=== PATIENT | female | born 1985 | race Caucasian/White ===

== ENCOUNTER 2020-04-29 16:49 | Observation (INO) | payer OTHER, SELFPAY ==
--- NOTE | ~2020-04-29 | US_ITS ---
EXAMINATION: US pelvic complete w TV DATE: 04/30/2020 09:47 INDICATION: Pelvic pain. TECHNIQUE: Multiple transabdominal and transvaginal sonographic images of the pelvis were obtained. COMPARISON: CT abdomen and pelvis 04/29/2020 FINDINGS: TRANSABDOMINAL ULTRASOUND: The uterus measures 8.5 x 5.4 x 4.5 cm. There is no free fluid in the pelvis. TRANSVAGINAL ULTRASOUND: The endometrial complex measures 7 mm in thickness. There is a nabothian cyst in the cervix. The righ t ovary measures 2.3 x 2.6 x 2.1 cm. The left ovary measures 1.9 x 1.7 x 2.5 cm. There is normal vasc ular flow in the ovaries. IMPRESSION: 1. No etiology for the patient's symptoms. Reviewed, dictated and finalized at location A. [employer] IN[employer]
--- NOTE | ~2020-04-29 | CT_ITS ---
EXAMINATION: CT abdomen pelvis w con DATE: 04/29/2020 18:25 INDICATION: Low abdominal pain. Bloating. TECHNIQUE: Computed tomography (CT) of the abdomen and pelvis was performed with 100 mL Omnipaque 350 intravenous contrast. Automated exposure control and iterative reconstruction technique were employe d. The dose-length product was 178.87 mGy-cm. COMPARISON: None. FINDINGS: The visualized portions of the lung bases demonstrate mild atelectasis. No pleural effusion . The heart size is normal. No pericardial effusion. There are bilateral breast implants. The liver, gallbladder, spleen, pancreas, adrenal glands, and kidneys are normal. There are no dilated loops of bowel. The visualized portion of the appendix is normal. There are no pathologically enlarged lymph n odes. There is no free intraperitoneal fluid. The bones are unremarkable. IMPRESSION: 1. No etiology for the patient's symptoms. Reviewed, dictated and finalized at location A. NTIFIC DIRECTOR
[2020-04-29 16:53] VITALS: BP 142/100; PULSE 106; RESP 16; TEMP 35.9; O2SAT 100
[2020-04-29 17:15] VITALS: BP 137/103; PULSE 95; RESP 18; O2SAT 99
[2020-04-29 17:22] LABS: Basophils Absolute Auto 0.1 K/mm3 (0.0-0.1); Hematocrit 39.5 % (37.0-47.0); Hemoglobin 13.6 g/dL (12.0-15.0); Immature Granulocyte Absolute 0.03 K/mm3 (0.00-0.031); Immature Granulocyte Percent A 0.4 % (0-0.5); Lymphocytes Absolute Auto 1.96 K/mm3 (0.9-3.2); Lymphocytes Percent Auto 29.1 % (18.3-44.2); Mean Corpuscular HGB Conc 34.4 g/dl (32-36); Mean Corpuscular Hemoglobin 31.6 pg (26-34); Mean Corpuscular Volume 91.9 fl (80-100); Mean Platelet Volume 10.5 fl (7.4-10.4); Monocytes Absolute Auto 0.6 K/mm3 (0.1-0.6); Monocytes Percent Auto 8.5 % (2.6-8.5); Neutrophils Absolute Auto 4.1 K/mm3 (1.3-6.7); Platelet Count Result 241 k/mm3 (150-375); Red Cell Distribution Width 11.3 % (11.5-14.5); White Blood Count 6.7 K/mm3 (4.5-10.0)
--- NOTE | 2020-04-29 17:23 | ED.ABDPAIN ---
HPI - Abdominal Pain General Chief Complaint: Abdominal Pain Stated Complaint: possible tubal ?/ Time Seen by Provider: 04/29/20 17:15 Source: patient Mode of arrival: ambulatory Limitations: no limitations History of Present Illness HPI narrative: Patient is a 34-year-old female complaining of right mid to lower quadrant pain rating to her right flank back, 6 out of 10, sharp started approximately 3 days ago worse today.. Related Data Home Medications Medication Instructions Recorded Confirmed lamotrigine DAILY 04/29/20 venlafaxine mg PO DAILY 04/29/20 Allergies Allergy/AdvReac Type Severity Reaction Status Date / Time codeine AdvReac Mild Nausea and Verified 04/29/20 16:57 Vomiting Review of Systems Review of Systems: All systems reviewed & are unremarkable except as noted in HPI and below Constitutional: Constitutional: Denies body ache(s), Denies chills, Denies excessive sweating, Denies fatigue, Denies fever(s), Denies headache(s), Denies lethargy, Denies malaise, Denies weakness and Denies weight loss Eyes: Eyes: Denies blurry vision, Denies change in vision and Denies loss of vision ENT: Denies dizziness, Denies ear discharge, Denies headache(s), Denies lip swelling, Denies epistaxis, Denies nasal congestion, Denies neck pain, Denies throat swelling and Denies tongue swelling Cardiovascular: Cardiovascular: Denies chest pain, Denies chest pain at rest, Denies chest pain with activity, Denies diaphoresis, Denies rapid heart rate, Denies edema, Denies irregular heart rhythm, Denies lightheadedness, Denies palpitations, Denies dyspnea and Denies dyspnea on exertion Respiratory: Respiratory: Denies chest congestion, Denies cough, Denies hemoptysis, Denies dyspnea and Denies dyspnea on exertion Gastrointestinal: Gastrointestinal: Denies melena, Denies hematochezia, Denies diarrhea, Denies nausea, Denies vomiting and Denies hematemesis Musculoskeletal: Musculoskeletal: Denies abnormal gait, Denies deformity, Denies joint swelling, Denies limited range of motion, Denies neck pain and Denies numbness Neurologic: Denies Abnormal speech present, Denies abnormal gait, Denies confusion, Denies dizziness, Denies headache(s), Denies focal weakness, Denies loss of vision, Denies numbness, Denies Other visual disturbances, Denies Sensory deficit (Neuro) and Denies weakness Psychiatric: Psychiatric: Denies confusion, Denies depression, Denies auditory hallucinations, Denies homicidal ideation and Denies suicidal ideation Endocrine: Endocrine: Denies cold intolerance, Denies excessive sweating, Denies fatigue, Denies heat intolerance and Denies palpitations Hematologic/Lymphatic: Hematologic/Lymphatic: Denies easy bleeding and Denies easy bruising Allergic/Immunologic: Allergic/Immunologic: Denies lip swelling, Denies throat swelling and Denies tongue swelling PMFSH Social History Social History Gender identity (if verbalized by the patient): Female Exam Const: General: cooperative, healthy appearing, comfortable, no acute distress, well developed, alert and awake; No confusion Orientation/consciousness: oriented to person, oriented to place, oriented to time, patient oriented x3 and No confusion Limitations: no limitations HENMT: Head: normal to inspection, normocephalic and atraumatic Ears: hearing grossly normal bilaterally, TM normal on the right and TM normal on the left General nose exam: Normal external nose present, Normal nares present and No nasal discharge present Face and sinus: normal facial exam Mouth: Yes Normal oral and palatal mucosa present, Yes lip normal, Yes tongue normal and Yes oropharynx normal Throat: posterior oropharynx normal, tonsils normal and uvula midline Eyes: General: appearance normal, both eyes and all related structures Pupils: Equal, round and reactive pupils present EOM: EOMs intact bilaterally Neck: Neck: normal visual inspection, full ROM, no lymphadenopathy and
[2020-04-29 17:26] LABS: Add Urine Microscopic? YES; Appearance Urine Clear (Clear); Bacteria Urine 1+ /hpf; Bilirubin Urine Negative (Negative); Blood Urine Negative (Negative); Color Urine Straw (Yellow); Glucose Urine UA Negative (Negative); Ketones Urine 1+ mg/dL (Negative); Leukocyte Esterase Ur Trace LEU/UL (Negative); Mucus Urine Rare /lpf; Nitrate Urine Negative (Negative); Protein Urine Negative (Negative); RBC Urine 0-2 /hpf (0-2); Specific Grav Ur 1.012 (1.001-1.035); Squamous Epithelial Cell Urine Many /hpf (Few); Urobilinogen Urine Negative mg/dL (<2.0); WBC Urine 0-3 /hpf
[2020-04-29 17:31] LABS: Alanine Aminotransferase 22 U/L (4-35); Albumin Level 4.6 g/dL (3.5-5.1); Alkaline Phosphatase 63 U/L (38-126); Anion Gap 8 mmol/L (8-16); Aspartate Amino Transferase 29 U/L (14-36); Bilirubin,Total 0.4 mg/dL (0.2-1.3); Blood Urea Nitrogen 8 mg/dL (7-17); Calcium 9.1 mg/dL (8.4-10.2); Carbon Dioxide 31 mmol/L (22-30); Chloride 98 mmol/L (98-107); Estimated CRCL calculation 93 ml/min; Estimated Glomerular Filt Rate > 60; Glucose 112 mg/dL (65-105); Lipase 1658 U/L (23-300); Potassium 3.1 mmol/L (3.4-5.0); Sodium 137 mmol/L (137-145)
[2020-04-29] MEDS: SODIUM CHLORIDE 0.9% IV 1,000 ML 999 ML IV CONT (17:49)
[2020-04-29 19:10] VITALS: BP 128/97; PULSE 76; RESP 16; O2SAT 100
[2020-04-29] MEDS: KETOROLAC 30 MG/ML VIAL (*BKC) IV PUSH (19:49)
[2020-04-29] MEDS: KCL 20 MEQ/D5/0.45% SOD CHL 1,000 ML 125 ML IV CONT (19:49)
[2020-04-29] MEDS: HYDROmorphone HCL INJ (*CRX) 1 MG/ML SYR 0.5 MG IV PUSH (20:40)
[2020-04-29] MEDS: ONDANSETRON INJ 4 MG/2 ML VIAL IV PUSH (20:40)
[2020-04-29 20:43] VITALS: BP 132/84; PULSE 80; RESP 16; TEMP 36.2; O2SAT 98
--- NOTE | 2020-04-29 21:11 | PC.NURSE ---
This patient, Michelle Castro, was admitted to [facility]. Patient/family oriented to hospital policies and general routines including ID bracelet, bed and alarms, visiting hours, pain management, procedures, bathroom and other care routines, personal items, smoking policy, room service/diet, and visiting hours. Information on how to activate the Rapid Response Team has been discussed. Patient/Family are encouraged to report perceived risks to care and to ask questions if they do not understand what they are told or what they should do.
[2020-04-29 21:18] VITALS: BMI 20.6
[2020-04-29 21:45] VITALS: BP 144/106; PULSE 66; RESP 18; TEMP 36.6; O2SAT 99
[2020-04-29 23:47] VITALS: BP 134/99
[2020-04-30] MEDS: LORazepam INJ (*CRX) 2 MG/ML VIAL 0.5 MG IV PUSH (00:12)
--- NOTE | 2020-04-30 01:37 | PM.IMHP ---
H&P: HPI History of Present Illness Date/Time: 04/30/20 00:15 Chief Complaint: Right lower abdominal pain and back pain for 3 days. Narrative: Michelle Castro is a 34 year old female with a past medical history of anxiety who presented to the ER with 3 days right lower abdominal pain. The patient reported that on the 1st days she thought that she may have been ovulating when she began having pain in the right adnexal region. She reported the pain was sharp and stabbing. The patient was a 4-5/10 in intensity. The pain was improved with ibuprofen. The patent radiated down into her right upper thigh for the 1st day. The next morning she woke up and the pain had started radiating to her right SI region. Vein was not worse with movement. She did try a heating pad without improvement in her symptoms. She is on day 13 of her cycle and thought that she may be ovulating. She denies a history of endometriosis. She always has some increased vaginal discharge but is unchanged from baseline. She denies any fevers or chills. She has had no high-risk sexual activity and is in a monogamous relationship. She has been having normally formed bowel movements without hematochezia or melena. She denies any epigastric pain, nausea or vomiting. She reports that she frequently has symptoms of irritable bowel with intermittent diarrhea and constipation but she started seeing a naturopathic physician several months ago in the symptoms have improved with supplements. She has not had any GI symptoms since that time. She received Toradol in the ER which improved her pain minimally. She received dose of Dilaudid 0.5 mg which alleviated her pain completely been our pain is returned. Her pain is not radiated down into her thigh since the 1st day of symptoms. She reports associated abdominal bloating. She reports that her abdomen was roughly the size comparable to when she was 5 months . She is still mildly bloated but not as much as previous. In the ER her lipase was elevated to 1658. She denies any recent alcohol use. She has not drank any alcohol in 5 months. Prior to those 5 months she used to go out once or twice a month and drink quite heavily. Since she has quit drinking her irritable bowel symptoms have improved. She denies any recent ill contacts. Urine test was negative. Of note patient has had some significant social stressors. Her father due to suicide last month. She has also been doing some moving/construction in her home. Review of Systems Review of Systems: Narrative: 12 systems were reviewed with pertinent positives and negatives per HPI. Except as documented in the HPI, all other systems were reviewed and are negative. [facility] Past Medical History Medical History (Updated 04/30/20 @ 01:53 by Hilary Robles DO) Anxiety Surgical History Surgical History (Updated 04/30/20 @ 01:48 by Hilary Robles DO) History of breast augmentation Family History Family History Grandparent History of blood clots Diabetes mellitus Grandparent Diabetes mellitus Mother Hypertension Social History Social History (Updated 04/30/20 @ 01:50 by Hilary Robles DO) Social History: Patient lives in 5 years and their 3-year-old son. 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 She has never smoked. She used to drink alcohol heavily once or twice a month but has not drank any alcohol since November 2019. She does use marijuana on occasion to help her sleep and treat her anxiety. Primary care physician: Dr. Miki Del Valle Surrogate decision maker: Mack () Smoking status: Never smoker Alcohol intake: former Substance use type: marijuana Last use: 04/22/2020 Gender identity (if verbalized by the patient): Female Spiritual care concerns: No Meds Home Medications and Allergies Home Medications Medication Instructions Recorded Confirm
[2020-04-30] MEDS: KCL 20 MEQ/D5/0.45% SOD CHL 1,000 ML 150 ML IV CONT ×2 (03:24→10:14)
[2020-04-30 05:53] VITALS: BP 110/81; PULSE 68; RESP 16; TEMP 36.3; O2SAT 100
[2020-04-30 06:28] LABS: Anion Gap 4 mmol/L (8-16); Blood Urea Nitrogen 4 mg/dL (7-17); Calcium 8.3 mg/dL (8.4-10.2); Carbon Dioxide 30 mmol/L (22-30); Chloride 105 mmol/L (98-107); Estimated CRCL calculation 95 ml/min; Estimated Glomerular Filt Rate > 60; Glucose 108 mg/dL (65-105); Lipase 580 U/L (23-300); Sodium 139 mmol/L (137-145)
[2020-04-30 08:00] VITALS: BP 118/86; PULSE 68; RESP 16; TEMP 36.6; O2SAT 100
--- NOTE | 2020-04-30 08:45 | PC.NURSE ---
DR. SMITH HERE TO SEE PT. ORDERS RECEIVED FOR TRANSVAGINAL US. PT. DENIES NAUSEA OR VOMITING, BUT C/O LOWER ABDOMEN SORENESS ON PALPATION. WILL CONTINUE TO MONITOR.
[2020-04-30] MEDS: lamoTRIgine 100 MG TABLET PO (10:09)
[2020-04-30] MEDS: VENLAFAXINE HCL XR 75 MG CAP.ER.24H 150 MG PO (10:09)
--- NOTE | 2020-04-30 12:00 | PC.NURSE ---
HAS HAD TRANSVAGINAL US COMPLETED. US REPORT CALLED TO DR. SMITH. OK TO EAT REGULAR DIET RECEIVED. PT. STILL WITH MILD C/O LOWER ABDOMEN SORENESS TO LOWER BACK. RESTING W/ EYES CLOSED WHEN NOT DISTURBED. WILL CONTINUE TO MONITOR.
--- NOTE | 2020-04-30 13:15 | PC.NURSE ---
PLAN IS FOR DISCHARGE HOME. AWAIT ORDER FROM DR. SMITH.
--- NOTE | 2020-04-30 14:25 | PM.DS ---
DS: Admitting Diagnosis Admitting Diagnosis Admitting Diagnosis: Assessment and plan (1) Acute pancreatitis: Qualifiers: Acute pancreatitis complication: no infection or necrosis Pancreatitis type: unspecified pancreatitis type Qualified Code(s): K85.90 - Acute pancreatitis without necrosis or infection, unspecified Code(s): K85.90 - Acute pancreatitis without necrosis or infection, unspecified Status: Acute (2) Right lower quadrant pain: Code(s): R10.31 - Right lower quadrant pain Status: Acute Additional Plan Right lower quadrant abdominal pain. Rib patient's right lower quadrant/adnexal abdominal pain is more consistent with possible gynecologic origin. The patient's lipase is elevated but she has no epigastric tenderness, nausea or vomiting that was support diagnosis of acute pancreatitis. The patient is currently NPO. Will repeat lipase level in a.m. and continue IV fluid hydration. Will check urine GC and chlamydia in a.m.. Will also check pelvic/right lower quadrant ultrasound to rule out ovarian cysts. The patient's symptoms could also be due to endometriosis as a possible diagnosis. The patient's CT did not demonstrate any specific etiology for her symptoms. Torsion is a possibility but much less likely given the duration of the patient's symptoms. If the patient's ovary was torsed for 3 days would be evidence of inflammation or process on CT scan. Will continue PRN pain medication with Dilaudid. Given the patient's increased stress of recent events functional abdominal pain is also consideration. DS: Summary Hospital Course Hospital Course: Patient with elevated Lipase on blood work however no findings on CT or physical exam. Received IV fluids, pain management, tolerated po was discharged home will follow up in the outpatient setting. Of note patient has had extensive work up done for infertility. EXAMINATION: CT abdomen pelvis w con DATE: 04/29/2020 18:25 INDICATION: Low abdominal pain. Bloating. TECHNIQUE: Computed tomography (CT) of the abdomen and pelvis was performed with 100 mL Omnipaque 350 intravenous contrast. Automated exposure control and iterative reconstruction technique were employed. The dose-length product was 178.87 mGy-cm. COMPARISON: None. FINDINGS: The visualized portions of the lung bases demonstrate mild atelectasis. No pleural effusion. The heart size is normal. No pericardial effusion. There are bilateral breast implants. The liver, gallbladder, spleen, pancreas, adrenal glands, and kidneys are normal. There are no dilated loops of bowel. The visualized portion of the appendix is normal. There are no pathologically enlarged lymph nodes. There is no free intraperitoneal fluid. The bones are unremarkable. IMPRESSION: 1. No etiology for the patient's symptoms. EXAMINATION: US pelvic complete w TV DATE: 04/30/2020 09:47 INDICATION: Pelvic pain. TECHNIQUE: Multiple transabdominal and transvaginal sonographic images of the pelvis were obtained. COMPARISON: CT abdomen and pelvis 04/29/2020 FINDINGS: TRANSABDOMINAL ULTRASOUND: The uterus measures 8.5 x 5.4 x 4.5 cm. There is no free fluid in the pelvis. TRANSVAGINAL ULTRASOUND: The endometrial complex measures 7 mm in thickness. There is a nabothian cyst in the cervix. The right ovary measures 2.3 x 2.6 x 2.1 cm. The left ovary measures 1.9 x 1.7 x 2.5 cm. There is normal vascular flow in the ovaries. IMPRESSION: 1. No etiology for the patient's symptoms. Time Spent with Patient Time attestation: Total time spent providing and/or coordinating discharge services: Exam Const: General: healthy appearing, comfortable, alert, awake and Physically active Nutritional Appearance: thin Orientation/consciousness: patient oriented x3 Limitations: no limitations HENMT: Head: normocephalic Face and sinus: normal facial exam Eyes: General: appearance
== END 2020-04-30 14:50 | disposition home or self-care (01) ==
LOC: ANHED 20:03 → ANHCPC 20:59
PROVIDERS: Emergency Medicine; Admitting Provider Internal Medicine; Emergency Provider Emergency Medicine; PCP Family Medicine; Visit Provider Internal Medicine
DX: K85.90 Acute pancreatitis without necrosis or infection, unspecified (principal); R03.0 Elevated blood-pressure reading, without diagnosis of hypertension; F41.9 Anxiety disorder, unspecified; F12.90 Cannabis use, unspecified, uncomplicated
CPT/HCPCS: 36415; 74177; 76830; 76856; 80048; 80053; 81001; 81025; 83690; 85025; 87491; 87591; 96365; 96366; 96375; 99285; A9270; G0378; J1170; J1885; J2060; J2405; J3480; J7030; Q9967

== ENCOUNTER 2022-07-23 10:11 | Outpatient (CLI) | payer OTHER, SELFPAY ==
[2022-07-23 11:03] LABS: CRP < 0.5 mg/dL (<1.0); Erythrocyte Sedimentation Rate 13 mm/hr (0-20)
[2022-07-23 11:41] LABS: Thyroid Stimulating Hormone Reflex 0.847 uIU/mL (0.465-4.68)
[2022-07-29 10:01] LABS: Gliadin AB, IgG <1.0 U/mL (<15.0); TTG IGA AB <1.0 U/mL (<15.0)
== END 2022-07-23 10:12 | disposition home or self-care (01) ==
LOC: ANHLAB 10:13
PROVIDERS: PCP Family Medicine; Visit Provider Nurse Practitioner
DX: R14.0 Abdominal distension (gaseous) (principal); R10.2 Pelvic and perineal pain
CPT/HCPCS: 36415; 84443; 85652; 86140; 86255; 86364

== ENCOUNTER 2022-08-04 07:33 | Outpatient (CLI) | payer OTHER, SELFPAY ==
--- NOTE | ~2022-08-04 | CT_ITS ---
EXAMINATION: CT abdomen pelvis w con DATE: 08/04/2022 08:07 INDICATION: Abdominal distention, bloating, lower abdominal pain TECHNIQUE: Computed tomography (CT) of the abdomen and pelvis was performed with 100 CC Omnipaque 350 intravenous contrast. Automated exposure control and iterative reconstruction technique were employe d. Exam dose: 255.77 mGy-cm total exam DLP. COMPARISON: 04/30/2020 complete pelvic ultrasound examination 04/29/2020 CT abdomen pelvis FINDINGS: Mild left lower lobe discoid atelectasis or scarring. The lung bases are clear of consolida tion. Normal heart size. No pericardial or pleural effusion. Breast implants. The liver, gallbladder, bile ducts, pancreas, pancreatic duct and spleen as well as the adrenal gland s and kidneys appear normal. No urinary tract calculus or hydroureteronephrosis. Approximately 9.5 x 15 mm peripherally enhancing corpus luteum cyst of right ovary the ovaries and ad nexal areas and uterus are otherwise unremarkable. There is a prominent amount of fecal material within the colon. There are some fluid containing small bowel segments with occasional small bowel air-fluid levels which may be due to mild adynamic ileus or enteritis. The appendix is not clearly outlined but no inflammatory change is evident in the right lower quadran t or pelvis to suggest appendicitis. No intraperitoneal free air. No abnormal dilatation of small or large bowel or bowel wall thickening is detected. No pneumatosis. Included skeletal structures are unremarkable. IMPRESSION: Nonspecific abdomen and pelvis Reviewed, dictated and finalized at Location A. Reviewed, dictated and finalized at location B.
== END 2022-08-04 07:34 | disposition home or self-care (01) ==
PROVIDERS: PCP Family Medicine; Visit Provider Nurse Practitioner
DX: R14.0 Abdominal distension (gaseous) (principal); R10.2 Pelvic and perineal pain
CPT/HCPCS: 74177; Q9967

== ENCOUNTER 2022-08-28 09:25 | Outpatient (CLI) | payer OTHER, SELFPAY ==
[2022-08-28 09:54] LABS: Hematocrit 40.7 % (37.0-47.0); Hemoglobin 13.9 g/dL (12.0-15.0); Mean Corpuscular HGB Conc 34.2 g/dl (32-36); Mean Corpuscular Hemoglobin 32.7 pg (26-34); Mean Corpuscular Volume 95.8 fl (80-100); Mean Platelet Volume 9.9 fl (7.4-10.4); Platelet Count Result 200 k/mm3 (150-375); Red Blood Count 4.25 M/mm3 (4.2-5.4); White Blood Count 4.7 K/mm3 (4.5-10.0)
== END 2022-08-28 09:26 | disposition home or self-care (01) ==
LOC: ANHSURGERY 09:29
PROVIDERS: PCP Family Medicine; Visit Provider Student in an Organized Health Care Education/Training Program
DX: Z01.812 Encounter for preprocedural laboratory examination (principal); R10.2 Pelvic and perineal pain
CPT/HCPCS: 36415; 85027; 86850; 86900; 86901

== ENCOUNTER 2022-09-01 01:49 | Day surgery (SDC) | payer OTHER, SELFPAY ==
[2022-08-22 14:54] VITALS: BMI 21.4
--- NOTE | 2022-08-22 15:00 | PC.NURSE ---
Report to the Outpatient Waiting Room, entrance under the green pavilion located off [facility], at time 8:00 on date 09/01/22. Planned Procedure Time: 10:00. Time changes happen often and if your time is changed the preop area will call you the afternoon before. - You and your visitor will be asked to self-screen and do not enter if you have any COVID symptoms. - A mask is optional within the hospital at this time. Patients may have clear liquids (water, carbonated beverages, clear teas, apple juice) until 3 hours prior to surgery (7:00) with a maximum of 20 ounces. - No food from midnight until time of surgery Take the following medications with a SIP of water the morning of surgery: LAMOTRIGINE, VENLAFAXINE DO NOT STOP ANY OF YOUR OTHER PRESCRIPTION MEDICATIONS PRIOR TO SURGERY?EXCEPT THE FOLLOWING Medications to discontinue per physician: N/A Date to take last dose: N/A Please no make-up, nail ukrainian, hairspray, perfume, deodorant, or body powder the day of surgery. No jewelry (including any body piercings) or valuables the day of surgery, leave them at home. Please take a shower or bath the night before, or the morning of, surgery with an antibacterial soap. Wear comfortable, loose fitting clothing. - Jewelry must be removed prior to entering the operating room. Rings and piercings that are not removed may be cut off. - The hospital will not accept responsibility for valuables. - Please leave all valuables, including medications, at home the day of surgery. If you are going home after surgery, a licensed charter coach driver must drive you home. - NO public transportation without another adult if you receive anesthesia. - We recommend that an adult stay with you for 24 hours following discharge. - We also recommend that you do not drive, make important decision, drink alcoholic beverages, or take any drugs that were not prescribed by your health care provider for at least 24 hours after your discharge time. Follow any additional instructions given to you from your surgeon. If you or anyone in your household have experienced Covid symptoms in the past week, please notify your surgeon or the nurse liaison at the phone number below for possible testing. Telephone instructions given to PT - ALBERTO DIAZ and asked if any additional questions and then verbalized understanding. Patient advised to call surgeon office or pre surgery nurse liaison [phone] if any additional questions.
[2022-09-01] VITALS (14 sets, daily range): BP systolic 109–152; BP diastolic 73–112; PULSE 63–132; RESP 12–18; TEMP 36.3–37.6; O2SAT 93–100; BMI 20.9
--- NOTE | 2022-09-01 07:46 | PM.IMHP ---
H&P: HPI History of Present Illness Date/Time: 09/01/22 07:46 Chief Complaint: abnormal uterine bleeding dysmenorrhea Narrative: 37-year-old female who presents for robotic assisted total laparoscopic hysterectomy and bilateral salpingectomy for abnormal uterine bleeding and dysmenorrhea. Patient has been having heavy and prolonged menses. Patient states her menses are associated with abdominal distension and intense pelvic pain. Patient declined hormonal contraceptives due to sabianism reasons. Patient was evaluated at [facility] emergency room. Patient had a negative vaginal panel for infection. Patient had negative beta hCG. Patient had a pelvic ultrasound which showed enlarged uterus with a thin endometrial stripe. Radiology read suspicious for adenomyosis. Patient requesting definitive therapy via hysterectomy. Review of Systems Cardiovascular: Cardiovascular: Denies chest pain, Denies leg edema, Denies palpitations, Denies dyspnea and Denies dyspnea on exertion Respiratory: Respiratory: Denies cough, Denies dyspnea and Denies dyspnea on exertion Gastrointestinal: Gastrointestinal: Denies abdominal pain, Denies constipation, Denies diarrhea, Denies nausea and Denies vomiting Genitourinary: Genitourinary: Denies hematuria, Denies urinary frequency, Denies dysuria, Denies pelvic pain, Denies urinary incontinence and Denies vaginal discharge Neurologic: Reports system reviewed and no additional complaints, except as documented Psychiatric: Psychiatric: Reports no additional psychiatric complaints Endocrine: Endocrine: Denies palpitations PMFSH Past Medical History Medical History Abdominal distension Abnormal small intestine motility Anxiety Bloating symptom Change in bowel habit Pelvic pain Surgical History Surgical History History of breast augmentation Family History Family History Grandparent History of blood clots Diabetes mellitus Grandparent Diabetes mellitus Mother Hypertension Social History Social History Social History: Patient lives in 5 years and their 3-year-old son. 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 She has never smoked. She used to drink alcohol heavily once or twice a month but has not drank any alcohol since November 2019. She does use marijuana on occasion to help her sleep and treat her anxiety. Primary care physician: Dr. Miki Del Valle Surrogate decision maker: Mack () Smoking status: Never smoker Alcohol intake: never Substance use: current Substance use type: marijuana Last use: 04/22/2020 Living arrangements: with family Gender identity (if verbalized by the patient): Female Spiritual care concerns: No Meds Home Medications and Allergies Home Medications Medication Instructions Recorded Confirmed Type lamotrigine 100 mg tablet 100 mg PO DAILY 04/29/20 08/22/22 History venlafaxine 150 mg 150 mg PO DAILY 04/29/20 08/22/22 History capsule,extended release 24 hr Allergies Allergy/AdvReac Type Severity Reaction Status Date / Time codeine AdvReac Mild Nausea and Verified 08/22/22 14:54 Vomiting Exam Const: General: no acute distress Eyes: EOM: EOMs intact bilaterally Neck: Neck: supple Thyroid: thyroid normal Chest: Breast/axilla inspection: normal inspection of the breasts Breast/axilla palpation: normal palpation of the breasts, normal palpation of the axillae and no axillary lymphadenopathy Resp: Effort & Inspection: normal respiratory effort Auscultation: clear to auscultation bilaterally Cardio: Rate: regular rate Rhythm: regular rhythm GI: Inspection: non-distended GI Palp: Yes Soft to palpation, No Tenderness to palpation present (GI) and No Guarding due to palpation
--- NOTE | 2022-09-01 07:50 | WPDHPUPDATE1 ---
History and Physical Update Update Date/Time: 09/01/22 07:50 History and Physical has been reviewed, including an updated exam of the patient. There are NO changes in the patient's condition. Risks, benefits, and alternatives have been discussed and questions answered. Patient agrees to proceed with procedure.
--- NOTE | 2022-09-01 08:39 | WPDANESEPPF ---
Anes - Initial Pre Proc Eval Procedure: Operation Date: 09/01/22 10:00 Proposed Procedures p Robotic Assisted Total Laparoscopic Hysterectomy with Bilateral Salpingectomy - Wilmer Werner MD Date/Time: 09/01/22 08:39 Surgeon: Wilmer Werner MD Pre Op Diagnosis: Pelvic Pain Patient Data Age: 37 Gender: F Height: 1.6 m Weight: 54.9 kg Allergies Allergy/AdvReac Type Severity Reaction Status Date / Time codeine AdvReac Mild Nausea and Verified 08/22/22 14:54 Vomiting Home Medications Medication Instructions Recorded Confirmed Type lamotrigine 100 mg tablet 100 mg PO DAILY 04/29/20 08/22/22 History venlafaxine 150 mg 150 mg PO DAILY 04/29/20 08/22/22 History capsule,extended release 24 hr Patient hx anesthesia problems: none Family hx anesthesia problems: none Results Review: All pre-operative results and documents have been reviewed as part of the pre-operative evaluation. [facility] Past Medical History Medical History Abdominal distension Abnormal small intestine motility Anxiety Bloating symptom Change in bowel habit Pelvic pain Surgical History Surgical History History of breast augmentation Family History Family History Grandparent History of blood clots Diabetes mellitus Grandparent Diabetes mellitus Mother Hypertension Social History Social History Social History: Patient lives in 5 years and their 3-year-old son. 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 She has never smoked. She used to drink alcohol heavily once or twice a month but has not drank any alcohol since November 2019. She does use marijuana on occasion to help her sleep and treat her anxiety. Primary care physician: Dr. Miki Del Valle Surrogate decision maker: Mack () Smoking status: Never smoker Alcohol intake: never Substance use: current Substance use type: marijuana Last use: 04/22/2020 Living arrangements: with family Gender identity (if verbalized by the patient): Female Spiritual care concerns: No Anes - Eval Final PreProcedure Day of Procedure 05/15/23 08:39 Patient weight: normal Heart: regular rate and rhythm Lungs: clear to auscultation and normal air movement Airway: Mallampati scale class II Neurological: alert and oriented Last oral intake: >/= 8 hours ASA classification: II Emergent: no Anesthetic plan: proceed Anesthesia type and monitoring: general ETT Results Review: All pre-operative results and documents have been reviewed as part of the pre-operative evaluation. Informed Consent: The patient's anesthetic plan and its attendant risks and benefits were discussed with the patient/family/POA. Questions were solicited and answers provided to the satisfaction of the patient/family/POA.
[2022-09-01] MEDS: LACTATED RINGERS 1,000 ML 30 ML IV CONT ×2 (08:55→11:49)
[2022-09-01] MEDS: KETOROLAC 15 MG/ML VIAL (*BKC) IV PUSH (09:05)
[2022-09-01] MEDS: ACETAMINOPHEN 500 MG TABLET 1000 MG PO (09:05)
[2022-09-01] MEDS: ceFAZolin 2 GM/D5W 50 ML 2 GM/50 ML BAG IVPB (10:11)
[2022-09-01] MEDS: LIDO 2%/EPINEPHRINE 1:100,000 50 ML VIAL 10 ML INFILTRATE (10:42)
--- NOTE | 2022-09-01 11:27 | W.PM.PROC2 ---
Procedure Note - Detailed Date of Procedure 09/01/22 Pre-op Diagnosis abnormal uterine bleeding dysmenorrhea Post-op Diagnosis Same Procedure Performed robotic assisted total laparoscopic hysterectomy and bilateral salpingectomy Surgeon Wilmer Werner MD Anesthesia General Findings enlarged uterus, normal appearing fallopian tubes and ovaries bilaterally. filmy adhesions between the bowel and the abdominal side wall Description of Procedure After the patient was appropriately consented she was taken to the operating room where she was transferred to the table in a dorsal supine position. General anesthesia was then induced with endotracheal intubation. The patient was transferred to a dorsal lithotomy position using adjustable yellow-fin stirrups. Her position was adjusted for appropriate support of her lower back and lower extremities. The patient was prepped and draped. A transurethral monet catheter was place. The cervix was sequentially dilated and a [employer] uterine manipulator placed in typical fashion about a 3 cm ELLEN ring. Gloves were changed. After confirmation of a functioning orogastric tube, lidocaine was injected at Liriano's point in the LUQ and a 5mm incision was made. A 5mm Optiview trocar was then inserted into the abdominal cavity under direct visualization and done so without complication. The abdomen was then insufflated with approximately 2-3L of CO2 establishing a pneumoperitoneum and the patient was placed in Trendelenburg position. Just above the umbilicus in the midline, a 8 mm incision made after injection of lidocaine and a 8 mm bladeless trocar advanced into the abdominal cavity under direct visualization without incident. We subsequently placed two robotic ports in a similar fashion, one in the left mid-quadrant and one in the right, 10cm lateral to the midline port. The robot was then docked. Some of the filmy adhesions between the ascending colon and the right abdominal side wall. Attention was turned to the left pelvis. The left fallopian tube was removed by sequentially dividing the mesosalpinx towards the uterus sparing the ovary. The utero-ovarian ligament was desiccated and transected, as was the round ligament. The posterior peritoneal leaf was taken down to the ELLEN ring. The anterior leaf was developed as well as the start of the bladder flap. The left uterine artery was then skeletonized and desiccated and transected just above the level of the ELLEN ring. Attention was turned to the right pelvis. The right fallopian tube was removed by sequentially dividing the mesosalpinx towards the uterus sparing the ovary. The utero-ovarian ligament was desiccated and transected, as was the round ligament. The posterior peritoneal leaf was taken down to the ELLEN ring. The anterior leaf was developed as well as the start of the bladder flap. The right uterine artery was then skeletonized and desiccated and transected just above the level of the ELLEN ring. The bladder was then further dissected inferiorly over the level of the ELLEN ring. A circumferential colpotomy was made using monopolar current. The uterus, cervix, bilateral tubes were then delivered transvaginally. I then placed a single figure of eight suture of 0-vicryl in the left corner of the vaginal cuff. I then re-approximated the colpotomy with a running #1 PDO Quill suture in 2 layers. Following this dissection, the abdomen and pelvis were copiously irrigated and all surgical sites found to be hemostatic. Skin sites were reapproximated with 4-0 Vicryl in a subcuticular fashion. Steri-Strips were placed. The patient tolerated the procedure well. Sponge, needle and instrument counts were correct x 2 and the patient was taken to recovery in stable condition. Ancef wase given for antimicrobial prophylaxis. The patient had SCD's on for VTE prophylaxis during the entire procedure. Estimated Blood Loss 50 Drains No Packing No Pathology Yes (cervix, uterus, bilateral
[2022-09-01] MEDS: fentaNYL CITRATE INJ (*CRX) 100 MCG/2 ML VIAL 25 MCG IV PUSH ×4 (12:00→12:11)
[2022-09-01] MEDS: HYDROmorphone HCL INJ (*CRX) 1 MG/ML SYR 0.5 MG IV PUSH ×6 (12:30→13:35)
[2022-09-01] MEDS: KETOROLAC 30 MG/ML VIAL (*BKC) IV PUSH ×2 (14:29→20:02)
[2022-09-01] MEDS: LACTATED RINGERS 1,000 ML 125 ML IV CONT (15:07)
--- NOTE | 2022-09-01 16:05 | ADMGEN ---
1407-This patient, Michelle Castro, was admitted to OB 2nd Floor Room 289-00. Patient/family oriented to hospital policies and general routines including ID bracelet, bed and alarms, visiting hours, pain management, procedures, bathroom and other care routines, personal items, smoking policy, room service/diet, and visiting hours. Information on how to activate the Rapid Response Team has been discussed. Patient/Family are encouraged to report perceived risks to care and to ask questions if they do not understand what they are told or what they should do.
[2022-09-01] MEDS: HYDROcodone/acetaminophen (*CRX) 10-325 MG TABLET 1 TAB PO ×2 (17:34→22:52)
[2022-09-01] MEDS: ONDANSETRON INJ 4 MG/2 ML VIAL IV PUSH (20:00)
[2022-09-01] MEDS: SENNA/DOCUSATE SODIUM TABLET 2 TAB PO (20:02)
[2022-09-02] MEDS: IBUPROFEN 600 MG TABLET PO ×2 (04:04→11:42)
[2022-09-02 04:05] VITALS: BP 123/84; PULSE 91; RESP 16; TEMP 36.8; O2SAT 97
[2022-09-02] MEDS: HYDROcodone/acetaminophen (*CRX) 5-325 MG TABLET 1 TAB PO (04:05)
[2022-09-02 05:18] LABS: Basophils Percent Auto 0.3 % (0.2-1.2); Hematocrit 36.9 % (37.0-47.0); Hemoglobin 12.6 g/dL (12.0-15.0); Immature Granulocyte Absolute 0.05 K/mm3 (0.00-0.031); Immature Granulocyte Percent A 0.4 % (0-0.5); Lymphocytes Absolute Auto 1.85 K/mm3 (0.9-3.2); Mean Corpuscular HGB Conc 34.1 g/dl (32-36); Mean Corpuscular Hemoglobin 32.1 pg (26-34); Mean Corpuscular Volume 93.9 fl (80-100); Mean Platelet Volume 10.7 fl (7.4-10.4); Monocytes Absolute Auto 1.2 K/mm3 (0.1-0.6); Monocytes Percent Auto 10.5 % (2.6-8.5); Neutrophils Absolute Auto 8.4 K/mm3 (1.3-6.7); Neutrophils Percent Auto 72.8 % (45.5-73.1); Platelet Count Result 217 k/mm3 (150-375); Red Blood Count 3.93 M/mm3 (4.2-5.4); Red Cell Distribution Width 11.5 % (11.5-14.5); White Blood Count 11.6 K/mm3 (4.5-10.0)
[2022-09-02 05:28] LABS: Anion Gap 5 mmol/L (8-16); Blood Urea Nitrogen 8 mg/dL (7-17); Calcium 8.5 mg/dL (8.4-10.2); Carbon Dioxide 33 mmol/L (22-30); Chloride 100 mmol/L (98-107); Estimated CRCL calculation 80 ml/min; Estimated Glomerular Filt Rate > 60; Glucose 104 mg/dL (65-110); Potassium 3.5 mmol/L (3.4-5.0); Sodium 138 mmol/L (137-145)
[2022-09-02 07:35] VITALS: BP 120/82; PULSE 86; RESP 16; TEMP 37.3; O2SAT 97
[2022-09-02] MEDS: HYDROcodone/acetaminophen (*CRX) 10-325 MG TABLET 1 TAB PO ×2 (08:05→11:42)
--- NOTE | 2022-09-02 08:16 | PM.DS ---
DS: Admitting Diagnosis Discharge Date 09/02/22 Admitting Diagnosis abnormal uterine bleeding Dysmenorrhea DS: Discharge Diagnosis Discharge Diagnosis (1) Dysmenorrhea: Code(s): N94.6 - Dysmenorrhea, unspecified Status: Acute (2) Abnormal uterine bleeding (AUB): Code(s): N93.9 - Abnormal uterine and vaginal bleeding, unspecified Status: Acute DS: Summary Hospital Course Hospital Course: Michelle Castro was admitted after robotic assisted total laparoscopic hysterectomy and bilateral salpingectomy for abnormal uterine bleeding and dysmenorrhea. The above procedure was performed with no complications. She is doing well post op. She reports some pain post op but is tolerable with medication. She reports minimal bleeding. She is ambulating up to the chair. Her monet catheter was removed. She is tolerating PO without N/V. She reports passing flatus. Status at Discharge Overall status at discharge: patient is progressing back to baseline Time Spent with Patient Time attestation: Total time spent providing and/or coordinating discharge services: Time spent: Less than 30 minutes Exam Const: General: comfortable and no acute distress Limitations: no limitations Resp: Effort & Inspection: normal respiratory effort Auscultation: clear to auscultation bilaterally Cardio: Rate: regular rate Rhythm: regular rhythm GI: Inspection: non-distended GI Palp: Yes Soft to palpation, Yes Tenderness to palpation present (GI) (milder tenderness to deep palpation) and No Guarding due to palpation present (GI) Auscultation: normal bowel sounds Other: incisions C/D/I covered with dermabond Urinary Catheter: Urinary Catheter: urine clear Skin: General skin exam: normal color Extrem: General: normal to inspection Psych: Mental Status: mental status grossly normal Affect: normal affect DS: Data Data Completed and Pending Pending studies at discharge: Pending at discharge 09/01/22 11:30 Surgical [PTH] Routine Labs on day of discharge: Labs from last 24 hours 09/02/22 04:14 WBC 11.6 H RBC 3.93 L Hgb 12.6 Hct 36.9 L MCV 93.9 MCH 32.1 MCHC 34.1 RDW 11.5 Plt Count 217 MPV 10.7 H Immature Gran % (Auto) 0.4 Neut % (Auto) 72.8 Lymph % (Auto) 16.0 L [place] % (Auto) 10.5 H Eos % (Auto) 0.0 Baso % (Auto) 0.3 Lymph # (Auto) 1.85 [place] # (Auto) 1.2 H Eos # (Auto) 0.0 Baso # (Auto) 0.0 Abs Immat Gran (auto) 0.05 H Absolute Neuts (auto) 8.4 H Absolute Nucleated RBC 0.0 Nucleated RBC % 0.0 Sodium 138 Potassium 3.5 Chloride 100 Carbon Dioxide 33 H Anion Gap 5 L BUN 8 Creatinine 0.70 Estim Creat Clear Calc 80 Estimated GFR > 60 Glucose 104 Calcium 8.5 Discharge Plan Discharge Patient Disposition: Home, Self-Care Patient Instructions: Laparoscopic Hysterectomy (DC) Stand Alone Forms: General Discharge Instructions Follow-up/Referrals: Wilmer Werner MD [Physician] - 2 Weeks Discharge Medications: New oxycodone-acetaminophen 5-325 mg tablet 1 tablet PO Q6H PRN (Reason: pain) Qty: 28 0RF ibuprofen 600 mg tablet 600 mg PO Q6H PRN (Reason: pain) Qty: 30 0RF sennosides-docusate sodium [Senokot-S] 8.6-50 mg Tablet 2 tab-cap PO HS Qty: 30 0RF Continued venlafaxine 150 mg capsule,extended release 24hr 150 mg PO DAILY lamotrigine 100 mg tablet 100 mg PO DAILY
--- NOTE | 2022-09-02 08:52 | P.PNAN_ITS ---
Anes - Prog Note Post-Op Date/Time: 09/02/22 08:52 Vital Signs: Last Vital Signs Temp 36.8 C 09/02/22 04:05 Pulse 91 09/02/22 04:05 Resp 16 09/02/22 04:05 BP 123/84 09/02/22 04:05 Pulse Ox 97 09/02/22 04:05 O2 Del Method Room Air 09/02/22 04:05 O2 Flow Rate 8 09/01/22 12:15 Pain Score (VAS): 4 I/O: Intake & Output 09/01/22 09/02/22 09/02/22 23:59 07:59 15:59 Intake Total 1092 200 Output Total 1350 800 Balance -258 -600 Laboratory Tests 09/02/22 04:14 09/02/22 04:14 09/02/22 04:14 WBC 11.6 H RBC 3.93 L Hgb 12.6 Hct 36.9 L MCV 93.9 MCH 32.1 MCHC 34.1 RDW 11.5 Plt Count 217 MPV 10.7 H Immature Gran % (Auto) 0.4 Neut % (Auto) 72.8 Lymph % (Auto) 16.0 L [place] % (Auto) 10.5 H Eos % (Auto) 0.0 Baso % (Auto) 0.3 Lymph # (Auto) 1.85 [place] # (Auto) 1.2 H Eos # (Auto) 0.0 Baso # (Auto) 0.0 Abs Immat Gran (auto) 0.05 H Absolute Neuts (auto) 8.4 H Absolute Nucleated RBC 0.0 Nucleated RBC % 0.0 Sodium 138 Potassium 3.5 Chloride 100 Carbon Dioxide 33 H Anion Gap 5 L BUN 8 Creatinine 0.70 Estim Creat Clear Calc 80 Estimated GFR > 60 Glucose 104 Calcium 8.5 Patient Feedback: Patient satisfied with anesthetic care.
== END 2022-09-02 11:55 | disposition home or self-care (01) ==
LOC: ANHSURGERY 07:59 → ANHOB2 14:03
PROVIDERS: PCP Family Medicine; Visit Provider Student in an Organized Health Care Education/Training Program
PROC: (CPT 58571; principal; 2022-09-01 10:00)
DX: N93.9 Abnormal uterine and vaginal bleeding, unspecified (principal); N94.6 Dysmenorrhea, unspecified; N73.6 Female pelvic peritoneal adhesions (postinfective); R10.2 Pelvic and perineal pain; F41.9 Anxiety disorder, unspecified; F12.90 Cannabis use, unspecified, uncomplicated
CPT/HCPCS: 58571; S2900; 36415; 80048; 85025; 85027; 86850; 86900; 86901; 88307; 99199; A9270; J0690; J1100; J1170; J1885; J2250; J2405; J2704; J3010; J7030; J7120

== ENCOUNTER 2023-10-20 16:30 | Emergency (ER) | payer OTHER, SELFPAY ==
--- NOTE | ~2023-10-20 | US_ITS ---
EXAMINATION: US pelvic complete DATE: 10/20/2023 19:08 INDICATION: Rule out ovarian torsion TECHNIQUE: Multiple transabdominal sonographic images of the pelvis were obtained. COMPARISON: CT abdomen pelvis, same date. FINDINGS: Uterus: Surgically absent. Right Ovary: 4.5 x 2.9 x 3.8 Vascular flow is present, with normal arterial and vascular waveforms. P rominent vascular pedicle, without any twisting of the vascular pedicle to suggest current torsion. Left Ovary: Not visualized. There is small volume free fluid in the pelvis. IMPRESSION: Prominent right ovary and right ovarian vascular pedicle with normal vascular flow. No swirl sign, fo llicular peripheralization, or stromal edema that could be seen with torsion. In the absence of clini yolande findings suggestive of ovarian torsion, these findings and that of the prior CT are likely within normal limits for this patient. Left ovary not visualized sonographically, appeared normal on the prior CT. Status post hysterectomy. Reviewed, dictated and finalized at location K. IMPRESSION: Prominent right ovary and right ovarian vascular pedicle with normal vascular f low. No swirl sign, follicular peripheralization, or stromal edema that could b e seen with torsion. In the absence of clinical findings suggestive of ovarian torsion, these findings and that of the prior CT are likely within normal limit s for this patient. Left ovary not visualized sonographically, appeared normal on the prior CT. Status post hysterectomy.
--- NOTE | ~2023-10-20 | CT_ITS ---
EXAMINATION: CT abdomen pelvis wo con, CT abdomen pelvis w con DATE: 10/20/2023 17:19 (accession [id number]), 10/20/2023 17:39 (accession [id number]) INDICATION: flank pain TECHNIQUE: Computed tomography (CT) of the abdomen and pelvis was performed without and with 100 mL O mnipaque 350 intravenous contrast. Automated exposure control and iterative reconstruction technique were employed. The dose-length product was 370.34 mGy-cm. COMPARISON: 08/04/2022. FINDINGS: Lower thorax: Bilateral breast implants. Liver: Normal. Biliary/Gallbladder: Gallbladder is normal. No bile duct dilation. Pancreas: No mass or duct dilation. Spleen: Normal. Adrenals:No mass. Kidneys: No suspicious mass, obstructing stone, or hydronephrosis. Punctate bilateral nonobstructing calculi. GI tract: Mild distal esophageal and gastric wall edema. No small or large bowel dilation. Normal tosin endix. Mesentery/Peritoneum: No ascites, mass, or free air. Retroperitoneum: No mass. Pelvis: The right ovary is enlarged to 4.9 cm, with central edema, peripheral follicles, and possible twisting of the right ovarian pedicle. Surgically absent uterus. Normal left ovary. Moderate free pe lvic fluid. Soft Tissues: Soft tissues and body wall unremarkable. Bones: No acute osseous finding. IMPRESSION: Mild esophagitis/gastritis. Findings concerning for right ovarian torsion, correlate with clinical presentation and consider pelv ic ultrasound for further evaluation. Reviewed, dictated and finalized at location K. IMPRESSION: Mild esophagitis/gastritis. Findings concerning for right ovarian torsion, correlate with clinical presenta tion and consider pelvic ultrasound for further evaluation.
[2023-10-20 16:34] VITALS: BP 131/95; PULSE 70; RESP 18; TEMP 36.3; O2SAT 100
[2023-10-20 16:45] VITALS: O2SAT 100
[2023-10-20 17:00] VITALS: O2SAT 97
[2023-10-20 17:15] LABS: Basophils Absolute Auto 0.1 K/mm3 (0.0-0.1); Basophils Percent Auto 0.9 % (0.2-1.2); Eosinophils Absolute Auto 0.1 K/mm3 (0-0.3); Eosinophils Percent Auto 1.6 % (0-4.4); Hematocrit 41.5 % (37.0-47.0); Hemoglobin 14.4 g/dL (12.0-15.0); Immature Granulocyte Absolute 0.01 K/mm3 (0.00-0.031); Immature Granulocyte Percent A 0.2 % (0-0.5); Lymphocytes Absolute Auto 1.33 K/mm3 (0.9-3.2); Lymphocytes Percent Auto 20.9 % (18.3-44.2); Mean Corpuscular HGB Conc 34.7 g/dl (32-36); Mean Corpuscular Hemoglobin 32.7 pg (26-34); Mean Corpuscular Volume 94.3 fl (80-100); Mean Platelet Volume 10.2 fl (7.4-10.4); Monocytes Absolute Auto 0.7 K/mm3 (0.1-0.6); Monocytes Percent Auto 10.5 % (2.6-8.5); Neutrophils Absolute Auto 4.2 K/mm3 (1.3-6.7); Neutrophils Percent Auto 65.9 % (45.5-73.1); Platelet Count Result 218 k/mm3 (150-375); Red Cell Distribution Width 11.6 % (11.5-14.5); White Blood Count 6.4 K/mm3 (4.5-10.0)
--- NOTE | 2023-10-20 17:15 | ED.ABDPAIN ---
HPI - Abdominal Pain General Chief Complaint: Abdominal Pain Stated Complaint: right flank pain Time Seen by Provider: 10/20/23 17:00 Source: patient and family Mode of arrival: ambulatory Limitations: no limitations History of Present Illness HPI narrative: 41 years old white female woke up this morning with slight pain at the right flank area, sharp, got worse when she went for a run associated with nausea. Denies any fever or chills or vomiting. History of hysterectomy depression, anxiety. Related Data Home Medications Medication Instructions Recorded Confirmed lamotrigine 100 mg tablet 100 mg PO DAILY 04/29/20 10/14/22 venlafaxine 150 mg 150 mg PO DAILY 04/29/20 10/14/22 capsule,extended release 24 hr Allergies Allergy/AdvReac Type Severity Reaction Status Date / Time codeine AdvReac Mild Nausea and Verified 10/14/22 14:12 Vomiting PMFSH Past Medical History Medical History Abdominal distension Abnormal small intestine motility Anxiety Bloating symptom Change in bowel habit Pelvic pain Surgical History Surgical History History of breast augmentation History of robot-assisted laparoscopic hysterectomy (09/01/22) robotic assisted total laparoscopic hysterectomy and bilateral salpingectomy Family History Family History Grandparent History of blood clots Diabetes mellitus Grandparent Diabetes mellitus Mother Hypertension Social History Social History Social History: Patient lives in 5 years and their 3-year-old son. 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 She has never smoked. She used to drink alcohol heavily once or twice a month but has not drank any alcohol since November 2019. She does use marijuana on occasion to help her sleep and treat her anxiety. Primary care physician: Dr. Miki Del Valle Surrogate decision maker: Mack () Smoking status: Never smoker Alcohol intake: never Substance use: current Substance use type: marijuana Last use: 04/22/2020 Lack of Transportation: No Lack of Food: Never True Current Housing: I Have Housing Concerned About Future Housing: No Difficulty Paying Gas/Electric Bills: No Difficulty Paying for Meds: No Currently Unemployed: No Education: Master's Degree or Higher Difficulty w/ Childcare or Family Care: No Living arrangements: with family Gender identity (if verbalized by the patient): Female Spiritual care concerns: No Course Vital Signs Vital signs: Vital Signs Temperature 36.3 C L 10/20/23 16:34 Pulse Rate 70 10/20/23 16:34 Respiratory Rate 18 10/20/23 16:34 Blood Pressure 131/95 H 10/20/23 16:34 Pulse Oximetry 100 10/20/23 16:34 Oxygen Delivery Room Air 10/20/23 16:34 Temperature 36.3 C L 10/20/23 16:34 Pulse Rate 70 10/20/23 16:34 Respiratory Rate 18 10/20/23 16:34 Blood Pressure 131/95 H 10/20/23 16:34 Pulse Oximetry 97 10/20/23 17:00 Oxygen Delivery Room Air 10/20/23 16:34 MDM - Abdominal Pain MDM Narrative Medical decision making narrative: PATIENT PRESENTS WITH RIGHT FLANK PAIN, DIFFERENTIAL DIAGNOSIS INCLUDE MUSCULAR PAIN, KIDNEY STONE, URINARY TRACT INFECTION, COLITIS, DIVERTICULITIS, CONSTIPATION. LABORATORY STATUS WERE OBTAINED ON THE PATIENT SHOWED WHITE COUNT OF 6.4 NORMAL ELECTROLYTES, NORMAL URINALYSIS, CT ABDOMEN AND PELVIS WITH IV CONTRAST SHOWED MILD ESOPHAGITIS/GASTRITIS, FINDINGS CONCERNING FOR RIGHT OVARIAN TORSION PELVIC ULTRASOUND SHOWED NO OVARIAN TORSION. PATIENT RECEIVED IV FLUID, IV DILAUDID AND ZOFRAN WITH REMARKABLE IMPROVEMENT. MUSCULOSKELETAL PAIN IS MY CONCERN. PATIENT IS PHYSICALLY ACTIVE, RUNS ALMOST DAILY. DISCHARGED ON IBUPROFEN NEEDED, HEATING PAD, STRETCHING. Differential D
[2023-10-20 17:25] LABS: Alanine Aminotransferase 22 U/L (6-35); Albumin Level 4.6 g/dL (3.5-5.1); Alkaline Phosphatase 55 U/L (38-126); Anion Gap 7 mmol/L (4-12); Aspartate Amino Transferase 24 U/L (14-36); Bilirubin,Total 0.6 mg/dL (0.2-1.3); Blood Urea Nitrogen 18 mg/dL (7-17); Calcium 9.4 mg/dL (8.4-10.2); Carbon Dioxide 28 mmol/L (22-30); Chloride 106 mmol/L (98-107); Estimated CRCL calculation 79 ml/min; Estimated Glomerular Filt Rate > 60; Glucose 110 mg/dL (65-110); Potassium 3.9 mmol/L (3.4-5.0); Sodium 141 mmol/L (137-145)
[2023-10-20 17:26] LABS: Appearance Urine Cloudy (Clear); Bacteria Urine None Seen /hpf; Bilirubin Urine Negative (Negative); Blood Urine Negative (Negative); Color Urine Yellow (Yellow); Glucose Urine UA Negative (Negative); Ketones Urine Negative (Negative); Leukocyte Esterase Ur Negative LEU/UL (Negative); Need Manual Microscopic Reviewed; Nitrate Urine Negative (Negative); Non Pathogenic Casts 0-2; Protein Urine Negative (Negative); Specific Grav Ur 1.018 (1.001-1.035); Squamous Epithelial Cell Urine None Seen /hpf (Few); WBC Urine 0-5 /hpf (0-3)
[2023-10-20 17:27] LABS: Add Urine Microscopic? YES
[2023-10-20] MEDS: SODIUM CHLORIDE 0.9% IV 1,000 ML 999 ML IV CONT (17:40)
[2023-10-20] MEDS: ONDANSETRON INJ 4 MG/2 ML VIAL IV PUSH (17:49)
[2023-10-20] MEDS: HYDROmorphone HCL INJ (*CRX) 1 MG/ML SYR 0.5 MG IV PUSH (17:49)
--- NOTE | 2023-10-20 18:51 | PC.NURSE ---
Pt off the floor with ultrasound at this time.
[2023-10-20 20:20] VITALS: BP 120/76; PULSE 68; RESP 16; O2SAT 98
== END 2023-10-20 20:22 | disposition home or self-care (01) ==
PROVIDERS: Emergency Medicine; Emergency Provider Emergency Medicine
DX: R10.9 Unspecified abdominal pain (principal); F41.9 Anxiety disorder, unspecified; Z90.710 Acquired absence of both cervix and uterus; Z90.79 Acquired absence of other genital organ(s); Z79.899 Other long term (current) drug therapy; K20.90 Esophagitis, unspecified without bleeding; K29.70 Gastritis, unspecified, without bleeding
CPT/HCPCS: 36415; 74176; 74177; 74178; 76856; 80053; 81001; 85025; 96361; 96374; 96375; 99284; J1170; J2405; J7030; Q9967